=== PATIENT | male | born 1945 | race Caucasian/White ===

== ENCOUNTER 2018-04-26 14:54 | Outpatient (CLI) | payer MEDICARE ==
--- NOTE | 2018-04-26 15:37 | RAD ---
PA AND LATERAL CHEST: History: Cough. Comparison: 01-09-14 FINDINGS: Heart size is within normal limits. There are some atherosclerotic changes of the aorta. The lungs ar e clear of any infiltrative process. IMPRESSION: No active intrathoracic disease. POS: [id number]
== END 2018-04-26 14:55 | disposition home or self-care (01) ==
LOC: SCSRAD 14:54
PROVIDERS: ATTEND Family Medicine
DX: R05 Cough (principal)
CPT/HCPCS: 71046

== ENCOUNTER 2021-09-29 07:29 | Outpatient (CLI) | payer MEDICARE | END 2021-09-29 07:30 | disposition home or self-care (01) | LOC: ULT 07:29 | PROVIDERS: ATTEND Internal Medicine Nephrology | DX: I13.10 Hypertensive heart and chronic kidney disease without heart failure, with stage 1 through stage 4 chronic kidney disease, or unspecified chronic kidney disease (principal); N18.30 Chronic kidney disease, stage 3 unspecified; M19.90 Unspecified osteoarthritis, unspecified site; E66.9 Obesity, unspecified; K21.9 Gastro-esophageal reflux disease without esophagitis; E78.5 Hyperlipidemia, unspecified; J45.909 Unspecified asthma, uncomplicated | CPT/HCPCS: 76770; 93975 ==

== ENCOUNTER 2021-09-30 14:45 | Outpatient (CLI) | payer MEDICARE | END 2021-09-30 14:46 | disposition home or self-care (01) | LOC: SCSRAD 14:45 | PROVIDERS: ATTEND Family Medicine | DX: M79.672 Pain in left foot (principal); M77.32 Calcaneal spur, left foot ==